=== PATIENT | female | born 1995 | race Caucasian/White ===

== ENCOUNTER 2020-03-23 15:28 | Outpatient (CLI) | payer OTHER ==
--- NOTE | 2020-03-23 16:37 | SLEEP CARE CONSULTATION ---
Information from patient questionnaire entered by Coby Ma. I have reviewed and concur with the information entered by Coby Ma. This document represents the service I personally performed and the decisions made by me, Flaca Ellison ARNP. History of Present Illness Service Date and Time: 03/23/2020 1528 Reason for Visit: New patient Chief Complaint: reports: Unrefreshed sleep, Excessive daytime sleepiness (always tired during the day unless she takes caffiene or B12 vitamins), Frequent awakenings at night, Other (Night sweats). denies: Snoring, Observed pauses in breathing Date of Onset: 3 + years Usual bedtime: 9 - 10 PM Time it takes to fall asleep: w/ sleep aid up to an hour Snores at night: No Observed to quit breathing while asleep: No Sleeps alone due to snoring: No Number of times waking at night: 6 + Reasons for waking at night: reports: Other (Night sweats, any noise or light). denies: Choking, Snoring, Gasping for air Toss, Turn, or Twitch while sleeping: Yes Recalls having dreams: Yes Usually gets out of bed at: 5 - 6 AM Feels refreshed in the morning: No Morning headache: No Sleepy or fatigued during the day: Yes Ever fallen asleep while driving: Yes (drowsy driving after long days mostly) Takes day naps: No Dreams during day naps: Yes Prior sleep studies: No Additional HPI information: I had the pleasure of seeing SOU[facility] SMITH today regarding the possibility of her having a sleep disorder. Her current complaints are frequent night awakenings, night sweats and unrefreshed sleep. She has issues with sleeping for a long time. Recently, she feels she is sweating more in the last 6 months and this is waking her up. She will feel cold and toss/turn at night, waking up with wet sheets. She has to listen to a fan to be able to get to sleep for the last few years. She states when she take naps in the afternoons she will have some sleep paralysis. - Parasomnia Symptoms Ever been unable to move upon waking from sleep: Yes Walks in sleep: No (she has rarely woke up standing by her bed) Talks in sleep: Yes Ever acted out dreams in sleep: No Ever felt weak in the knees when startled or emotional: No Bothered by creepy, crawly, restless sensations in legs: No Problems with memory or concentration: Yes (both) Subjective Initial [place] Sleepiness Scale score: 11 (in 2020) Past Medical History Past Medical History: denies: Hypertension, Diabetes, Arrythmia, Anxiety, Depression, Mood disorder, GERD Social History The patient's occupation is [employer]. Patient is Single and lives in [place]. Have you smoked in the past 12 months: No Alcohol use: Yes Alcohol amount and frequency: Few weekly Caffeine use: Yes Caffeine amount and frequency: 3 - 4 x a week Family History Family history of sleep disordered breathing: Yes Family Hx Sleep Apnea: Mother: Sleep apnea - Treated (RLS too) Allergies and Home Medications Drug allergies reviewed: Yes (NKDA) Home medication list reviewed: Yes Allergy and home medication list: Ibuprofen, prn Vitamins Melatonin prn nightly for sleep Review of Systems Cardiovascular: reports: leg or foot swelling. denies: high blood pressure, palpitations, irregular heart rate or pulse Gastrointestinal: denies: heartburn Neurological: denies: headaches Psychiatric: denies: anxiety, depression Ear/Nose/Throat: reports: wisdom teeth removed. denies: nasal congestion, dry mouth/throat, tonsillectomy Endocrine: reports: sluggishness (tired), too hot or cold Musculoskeletal: reports: joint pain, back pain Immunologic: reports: sneezing (runny nose). denies: allergies to food or environment Physical Exam Blood Pressure: 109/69 Cuff size: wrist Heart Rate: 52 O2 Saturation: 99 Height: 5 ft 3.75 in Weight: 129 lb Body Mass Index: 22.3 BMI Classification: Healthy weight Neck circumference: 13 (inches) Nostrils: patent to airflow Turbinates: swollen Mouth and throat: narrow oropharynx Soft palate: long Uvula visualization: 50% Mallampati Class II Tongue: enlarged in size with teeth garcia on lateral edges Tonsils: 1+ Chin and jaw: normal size and position Neck: normal w/o lymphadenopathy or thyromegaly Heart: regular rate and rhythm Lungs: clear bilaterally Impression and Plan 1. Suspected Obstructive Sleep Apnea-Hypopnea Syndrome, as suggested by a history of excessive daytime sleepiness, frequent awakening during the night, unrefreshed sleep, cognitive impairment, and excessive daytime sleepiness. Narrow oropharynx and obesity are common predisposing factors for obstructive sleep apnea-hypopnea syndrome. I recommend proceeding to polysomnography to confirm the diagnosis and to assess severity. If the patient has significant sleep disordered breathing, a manual CPAP titration study will also be performed to find the optimal treatment pressure. I informed the patient of what the sleep studies involve and after some discussion, obtained agreement to proceed. The pathophysiology of obstructive sleep apnea-hypopnea syndrome was discussed with the patient and health risks of cardiovascular and cerebrovascular disease if not treated. Risks of drowsy driving discussed in detail and patient advised to avoid long distance driving and to tap puller at the first sign of drowsiness. Patient agreed to plan. * Schedule polysomnography +- manual CPAP titration study and return in 1-2 weeks after the study to discuss result and initiate therapy. * Avoid long distance driving or driving when feeling sleepy. * Avoid alcohol, sedative and muscle relaxant around bedtime. * Review instructions provided by trained office staff on how to prepare for the sleep study. * Return for follow-up after sleep study completed. Visit Type: In Office Time Spent with Patient (minutes): 30 Provider Statement: I spent 100% of the Face to Face Visit with the patient with greater than 50% spent counseling the patient and coordination of care.
[2020-03-23 16:38] VITALS: BP 109/69
== END 2020-03-23 15:29 | disposition home or self-care (01) ==
LOC: SC 15:28
PROVIDERS: ATTEND Nurse Practitioner Family
DX: G47.8 Other sleep disorders (principal); R41.89 Other symptoms and signs involving cognitive functions and awareness; G47.10 Hypersomnia, unspecified
CPT/HCPCS: 99203; 99212

== ENCOUNTER 2020-05-02 12:57 | Outpatient (CLI) | payer OTHER | END 2020-05-02 12:58 | disposition home or self-care (01) | LOC: SC 12:57 | PROVIDERS: ATTEND Nurse Practitioner Family | DX: G47.10 Hypersomnia, unspecified (principal); R41.89 Other symptoms and signs involving cognitive functions and awareness; G47.8 Other sleep disorders | CPT/HCPCS: 95806 ==

== ENCOUNTER 2020-05-11 10:54 | Outpatient (CLI) | payer OTHER ==
--- NOTE | 2020-05-11 11:28 | SLEEP CARE CONSULTATION ---
Information from patient questionnaire entered by Cara Peguero. I have reviewed and concur with the information entered by Cara Peguero. This document represents the service I personally performed and the decisions made by , Flaca Ellison ARNP. History of Present Illness Service Date and Time: 05/11/2020 1054 Initial [place] Sleepiness Scale score: 11 (in 2020) Current [place] Sleepiness Scale score: 8 Additional HPI information: S[facility] SM[facility] returns for follow up and results of the recently performed home sleep study. The patient was informed of the following findings: no significant sleep disordered breathing with an average AHI of 0.2 and bi of 93%. I explained the pathophysiology behind obstructive sleep apnea. Patient does not have sleep apnea and was advised how weight gain could increase the risk of d eveloping sleep apnea in the future. Patient counseled not drink alcohol less than 4 hours before bedtime as it can increase snoring and apnea. Patient was cautioned about risks of drowsy driving until sleepiness symptoms resolve. Sleep Study - Results Type of Sleep Study: Home sleep study Prior sleep studies: No Polysomnography/Home Sleep Study results: Physician Impression: The quality of the study is good. The length of the study is adequate (> 240 minutes). Please also see the tabulated and graphic data. 1. No evidence of sleep disordered breathing, with an AHI of 0.2/hr and bi SaO2 of 93%. During the study, the patient had 1 apnea (1 obstructive, 0 central, 0 mixed) and 1 hypopnea. The longer episode lasted 13.0 seconds. The patient slept adequately in supine position (supine AHI was 0.0 and non-supine, 0.39). Allergies and Home Medications Home medication list reviewed: Yes (no changes) Review of Systems Review of systems same as previous: Yes (no changes) Physical Exam Heart Rate: 71 O2 Saturation: 100 Height: 5 ft 3.75 in Weight: 125 lb Body Mass Index: 21.6 BMI Classification: Healthy weight Impression and Plan 1. Fatigue, unspecified. She does not have significant sleep disordered breathing. She was advised to follow up with her PCP as there are other causes of fatigue for further evaluation. She voiced understanding. 2. Insomnia, unspecified. She has difficulty maintaining sleep after sleep onset. She wakes up and is unable to go back to sleep. She generally is in bed about 7-8 hours and gets up at same time in the morning. She has ruminating thoughts, some are random thoughts and not worries. I advised her to write these thoughts down when they occur and then try to go back to sleep. She voiced understanding. Insomnia is generally caused by an irregular sleep schedule, spending too much time in bed, napping, caffiene, electronics, lack of a relaxing bedtime ritual and clock watching. Other factors can include anxiety/depression, pain, medications, and obstructive sleep apnea. First I counseled the patient on the importance of a regular sleep schedule, starting with the wake time. Most caffeine is to be stopped after lunch as it has a 6 hour half life and reduce sleep latency and efficiency. In addition, it is important to have a relaxing ritual about 30-60 minutes before bedtime to allow the mind/body transition from an active day to sleep. Electronics should be avoided 1-2 hours before bedtime as the bright light can reduce the endogenous melatonin and the activity of the computer, tablet, cell phone etc can be alerting. TV is okay but content needs to be relaxing and the brightness dimmed. A warm bath or shower is another way to assist transition to sleep. In addition, it is important to have a sleep environment conducive to sleep such as a comfortable bed, comfortable temperature and quiet. [facility] How to Sleep Better pamphlet given and reviewed. A sleep diary will be completed for the next 2 weeks to assist implementation of recommendations and for further evaluation of sleep concerns. * Record 2 week sleep diary * Follow up for possible insomnia * Avoid alcohol consumption near bedtime * The patient is cautioned about driving until sleepiness is completely resolved. * Return in 2-4 weeks to discuss insomnia. Counseling Topics: Weight control Visit Type: In Office Time Spent with Patient (minutes): 17 Provider Statement: I spent 100% of the Face to Face Visit with the patient with greater than 50% spent counseling the patient and coordination of care.
== END 2020-05-11 10:55 | disposition home or self-care (01) ==
LOC: SC 10:54
PROVIDERS: ATTEND Nurse Practitioner Family
DX: R53.83 Other fatigue (principal); G47.00 Insomnia, unspecified
CPT/HCPCS: 99212